=== PATIENT | male | born 1965 | race Caucasian/White ===

== ENCOUNTER 2025-03-06 16:57 | Emergency (ER) | payer OTHER, SELFPAY ==
[2025-03-06 17:03] VITALS: BP 158/94; PULSE 84; TEMP 36.4; O2SAT 96; BMI 30.7
--- OUTSIDE RECORDS SUMMARY | 2025-03-06 17:16 | XMS_ITS | Clinical Summary ---
Author Organization [facility] Address [id number] [facility] [place] [address] Care Team Providers Care [employer] Driver Name Role Phone Zeke Barnett Primary Care Provider Allergies No known active allergies Medications No known medications Immunizations ImmunizationAdministration DatesNext DueCOVID-19, mRNA, LNP-S, PF, 100mcg/0.5mL Dose09/21/2020,08/24/2020 Family History Medical HistoryRelationNameCommentsHeart diseaseFatherNo Known ProblemsMother RelationNameStatusCommentsFatherDeceasedMotherAlive Social History Tobacco UseTypesPacks/DayYears UsedDateSmoking Tobacco: Every DayCigarettes Smokeless Tobacco: NeverAlcohol UseStandard Drinks/WeekCommentsYes0 (1 standard drink = 0.6 oz pure alcohol)daily beerChildcareAnswerDate RecordedChildcare Beampxu9908/07/2020mploymentAnswerDate IqchhuogKvmsdcmlwfXtwxxhq13/03/2021Purpose - LifeAnswerDate RecordedPurpose and direction in rlpzIwxownk97/03/2021ex and Gender InformationValueDate RecordedSex Assigned at BirthNot on fileLegal Sex Male12/10/2014 11:26 AM EDTGender IdentityNot on fileSexual OrientationNot on file Last Filed Vital Signs Vital SignReadingTime TakenCommentsBlood Gvtebgcy312/8904 12:46 PM EDT Nrbgj4902 12:46 PM WZUOgldqvywbml61.6 ??C (97.8 ??F)08/18/2020 11:14 AM EDTRespiratory Gpib6674 12:46 PM EDTOxygen Jnzlxzdlxf55%08/18/2020 12:46 PM EDTInhaled Oxygen Concentration--Kjqbeh55.3 kg (210 lb)08/18/2020 11:14 AM ALPXlxxxb378.1 cm (5' 10.51 )08/18/2020 11:14 AM EDTBody Mass Index29.7 08/18/2020 11:14 AM EDT Plan of Treatment Health MaintenanceDue DateLast DoneCommentsDepression Oawltuaqv58/22/1980Tobacco Xqaltahyb77/22/1980Adult BMI Jtkeonvhf62/22/1986Zoster (Shingles) Vaccine (1 of 2)2017COVID-19 Vaccine (3 - 2024- season)/, 08/24/2020Influenza Bcgeuij3201/05/2025DTaP,Tdap and Td Vaccines (2 - Tdap) Medical Devices Not on file Insurance Care Teams Team MemberRelationshipSpecialtyStart DateEnd Date Zeke Barnett DO [address] [facility], [place] [address] PCP - GeneralFamily Medicine08/10/20
--- OUTSIDE RECORDS SUMMARY | 2025-03-06 17:16 | XMS_ITS | Clinical Summary ---
Author Organization [facility] Address [address] [place] [address] Care Team Providers Care Business Continuity Coordinator Name Role Phone Unavailable Primary Care Provider Unavailabl e Social History Tobacco UseTypesPacks/DayYears UsedDateSmoking Tobacco: Never AssessedSex and Gender InformationValueDate RecordedSex Assigned at BirthNot on fileLegal Sex Male07/19/2022 7:08 PM EDTGender IdentityNot on fileSexual OrientationNot on file Last Filed Vital Signs Vital SignReadingTime TakenCommentsBlood Pressure--Pulse--Temperature-- Respiratory Rate--Oxygen Saturation--Inhaled Oxygen Concentration--Stezcs34 kg (205 lb)08/05/2020 12:00 PM XVORxffdn020.8 cm (5' 10 )08/05/2020 12:00 PM EDT Body Mass Index29.41008/05/2020 12:00 PM EDT Plan of Treatment Not on file
[2025-03-06 17:38] VITALS: O2SAT 98
--- NOTE | 2025-03-06 18:01 | ED_ITS ---
HPI HPI - General Adult General Chief complaint: Eye Problems Stated complaint: PAINT CHIP IN RIGHT EYE Time Seen by Provider: 03/06/25 17:17 Source: patient Mode of arrival: walk-in Limitations: no limitations History of Present Illness HPI narrative: Patient is a 59-year-old male who presents with complaints of right eye irritation after he was using a knife to chip paint off the floor in his bathroom. He felt something go into his eye and initially had a lot of tearing and felt something moving around when he would close his eyes. He initially flushed it out with water. He states he feels the pain on the outside of the eye now. He denies any visual changes now or right after it happened. He denies any recent trauma or surgery to this eye. He does wear glasses. Related Data Home Medications ?Medication ?Instructions ?Recorded ?Confirmed No Known Home Medications 03/06/2502/06 Allergies Allergy/AdvReac Type Severity Reaction Status Date / Time No Known Drug Allergies Allergy Verified 03/06/25 17:03 Opioid HPI Opioid Management Most Recent Opioid Data: Last Pain Scale 7 Today, 17:35 Review of Systems ROS Status of ROS 10 or more systems reviewed and unremark able except as noted in history and below PFSH PFSH Social History Little interest or pleasure in doing things: not at all Feeling down, depressed, or hopeless: not at all Exam Narrative Exam Narrative: General: No distress, age-appropriate Skin: Warm, dry, no pallor. No rash. Head: Normocephalic, atraumatic. Neck: Supple, non-tender. Eye: Pupils are equal, round and EOMI. No scleral icterus. No right conjun ctivitis, no trauma noted to the cornea. Eyelid everted, no trauma noted. No foreign bodies noted. Ears, Nose, Mouth, and Throat: No nasal mucosal hypertrophy. Oral mucosa is moist, no posterior oropharynx erythema, uvula is mid-line Cardiovascular: Regular Rate and Rhythm without murmur, gallop or rub. Respiratory: No accessory muscle use or respiratory distress. Neurological: A&O x4. No cranial nerve dysfunction observed. No truncal ataxia. Moves all extremities. Sensation intact. Psychiatric: Cooperative and interactive. Normal mood and affect. Constitutional Vital Signs, click to edit/add: Last Vital Signs Temp 97.6 F 03/06/25 17:03 Pulse 84 10/31/25 18:16 Resp 18 03/06/25 18:16 BP 144/75 H 03/06/25 18:16 Pulse Ox 99 03/06/25 18:16 O2 Del Method Room Air 03/06/25 18:16 Course Vital Signs Vital signs: Vital Signs Temperature 97.6 F 03/06/25 17:03 Pulse Rate 84 03/06/25 17:03 Respiratory Rate 16 03/06/25 17:03 Blood Pressure 158/94 H 03/06/25 17:03 Pulse Oximetry 96 03/06/25 17:03 Oxygen Delivery Method Room Air 03/06/25 17:03 Temperature 97.6 F 03/06/25 17:03 Pulse Rate 84 03/06/25 18:16 Respiratory Rate 18 03/06/25 18:16 Blood Pressure 144/75 H 03/06/25 18:16 Pulse Oximetry 99 03/06/25 18:16 Oxygen Delivery Method Room Air 03/06/25 18:16 Medical Decision Making MDM Narrative Medical decision making narrative: This is a 59-year-old male that presents with complaints of right eye pain after he was chipping paint in his bathroom with a metal knife. He felt something go in his right eye and could feel it moving around with each time he blinked. Initially he washed the eye out and had a lot of tearing. He does not feel anything moving around in his eye anymore but has pain on the lateral aspect of the eye when he blinks. RN flushed patient's right eye with saline. No note of foreign body. On my inspection there is no tearing of the eye, decreased vision, hyphema, severe pain out of proportion, chemical exposure, patient or penetrating trauma or suspected intraocular foreign body. Foreign body not noted on my inspection either. I discussed with patient that I would like to do a slit-lamp exam to evaluate for a FB or corneal abrasion. Patient declines this testing. We discussed treatment lubricating drops with artificial tears and/or NSAIDs, ibuprofen or Tylenol. Patient and voiced understanding. Return to ED precautions discussed such as sudden decrease in vision, increasing pain, persistent redness, tearing, or discharge, photophobia, foreign body sensation that does not resolve. Pain was controlled in patient's right eye, no visual changes, patient was discharged in stable condition with plans for close follow- up with primary care provider. Differential Diagnosis Differential Diagnosis: Corneal abrasion, foreign body Discharge Plan Discharge Chief Complaint: Eye Problems Clinical Impression: Corneal abrasion Patient Disposition: Home, Self-Care Time of Disposition Decision: 17:58 Condition: Good Mode of Transportation: Private Vehicle Prescriptions / Home Meds: No Action No Known Home Medications Print Language: Hungarian Instructions: Corneal Abrasion (ED) Additional Instructions: Eye Care at Home * Do not rub your eye; this may scratch the cornea. * Rinse the eye with sterile saline or clean water if it feels irritated. * Lubricating eye drops (artificial tears) may be used 3?4 times daily to soothe discomfort. * Avoid contact lenses until symptoms fully resolve. Pain Management * Oedk-cpq-jumkiig pain relief: Acetaminophen or NSAIDs as needed. * Avoid eye drops with multiple active ingredients unless prescribed. Warning Signs ? Return Immediately If You Notice: * Sudden decrease in vision * Persistent or worsening pain * Redness, tearing, or discharge that does not improve * Sensitivity to light (photophobia) * Feeling like something is still in the eye Referrals: Physician,Non-Staff, [Primary Care Provider] - 1 week Discharge Date/Time: 03/06/25 18:17
[2025-03-06 18:16] VITALS: BP 144/75; PULSE 84; O2SAT 99
== END 2025-03-06 18:17 | disposition home or self-care (01) ==
PROVIDERS: Emergency Provider Emergency Medicine
DX: S05.01XA Injury of conjunctiva and corneal abrasion without foreign body, right eye, initial encounter (principal); X58.XXXA Exposure to other specified factors, initial encounter
CPT/HCPCS: 99282